=== PATIENT | male | born 1975 ===

== ENCOUNTER 2018-06-21 06:01 | Day surgery (SDC) | payer OTHER ==
[2018-06-16 09:16] VITALS: BMI 27.3
[2018-06-21] MEDS ORDERED: ceFAZolin 1 gm in NS 2 GM/200 ML BAG IVPB ONE (07:29)
[2018-06-21] MEDS ORDERED: Lidocaine/Epinephrine 1% 1:100000 10 ML IJ ONE (07:29)
[2018-06-21] MEDS ORDERED: Midazolam 2 MG/2 ML VIAL ONE (07:30)
[2018-06-21] MEDS ORDERED: Propofol 10 mg/ml Inj (20 ML) ONE (07:30)
[2018-06-21] MEDS ORDERED: Rocuronium 10 mg/ml (5 ml) ONE (07:50)
[2018-06-21] MEDS: Bupivacaine 0.25% 20 ML INJ IJ ONE ×3 (08:48→10:50)
--- NOTE | 2018-06-21 11:10 | PCM.SURG1 ---
Surgeon's Initial Post Op Note - Surgeon's Notes Surgeon: Nakia Guest Services Attendant: PGY4, Sandeep OLIVAS Type of Anesthesia: General Endo, Block Regional, Local Pre-Operative Diagnosis: Right inguinal hernia Operative Findings: Bilateral inguinal hernias, R > L Post-Operative Diagnosis: Bilateral inguinal hernias Operation Performed: Robotic assisted bilateral inguinal hernia repair with mesh Specimen/Specimens Removed: R inguinal lipoma Estimated Blood Loss: EBL {In ML}: 10 Blood Products Given: N/A Drains Used: No Drains Post-Op Condition: Good Date of Surgery/Procedure: 06/21/18 Time of Surgery/Procedure: 08:15
[2018-06-21] MEDS ORDERED: Lactated Ringer's 1,000 ML IV SCH (11:15)
[2018-06-21 11:41] VITALS: TEMP 97; O2SAT 100
[2018-06-21 12:04] VITALS: PULSE 66; RESP 18
[2018-06-21 14:46] VITALS: BP 137/89
--- NOTE | 2018-06-22 01:54 | OP ---
PROCEDURE DATE: 06/21/2018 PREOPERATIVE DIAGNOSIS: Right inguinal hernia, possible bilateral inguinal hernia. POSTOPERATIVE DIAGNOSES: 1. Right direct-indirect hernia, pantaloon type. 2. Left direct inguinal hernia containing preperitoneal fat. 3. Lipoma of the right spermatic cord. OPERATIVE PROCEDURES: 1. Robotic right inguinal hernia repair with mesh. 2. Robotic left inguinal hernia repair with mesh. 3. Robotic excision of lipoma of the spermatic cord. 4. Laparoscopic bilateral transverse abdominis plane block placement. SURGEON: Panfilo Yee MD ASSISTANTS: DEISY Lubin and Akshat Love DO, PGY-4 resident. TYPE OF ANESTHESIA: General endotracheal tube anesthesia. ESTIMATED BLOOD LOSS: Around 10 mL. DRAINS: None. PATHOLOGY: The lipoma of the right spermatic cord was sent for the pathology. COMPLICATIONS: None. INTRAOPERATIVE FINDINGS: The patient had a pantaloon-type hernia on the right side, direct-indirect component, and the patient also had a left direct inguinal hernia. DESCRIPTION OF PROCEDURE: On intraoperative steps, this is a 43-year-old male who was diagnosed with right inguinal hernia, and the patient was consented for the robotic right inguinal hernia repair with mesh with possible bilateral inguinal hernia. The patient was brought to the OR, placed supine on the operating table. After induction of anesthesia, the abdomen was prepped and draped in the usual sterile fashion. Supraumbilical transverse incision was made using the open technique. The robotic camera port was placed. Pneumo was created. Another three 8-mm port was placed in the upper abdomen. The robot was brought in. Camera arm as well as arm 1 and arm 2 were docked, and the patient was placed in the steep Trend position before docking the robot. The peritoneum was excoriated from the right ASIS up to the left ASIS. Before that, the exploration of the pelvis was done and the patient was found to have right inguinal hernia as well as the left direct inguinal hernia, and the peritoneal dissection was carried down in the midline at the space of Retzius. Laterally, the peritoneum was from the lateral abdominal wall on the right side and the vas deferens and spermatic cord vessels. The hernial sac and content was reduced back into the peritoneal cavity. There was a large lipoma of the cord that was also reduced back and it was excised. The patient also had another direct hernial content that was also reduced back into the peritoneal cavity. Now the similar dissection was done on the left side and the peritoneum was from the lateral abdominal wall. The vas deferens and spermatic cord vessels were , and the direct hernial sac was reduced back into the peritoneal cavity. The lipoma of the direct sac on the left side was also reduced back into the peritoneal cavity. Inferior dissection was done on both sides up to the pelvic brim and now the left and right anatomical mesh was placed. After proper implantation of the mesh, the peritoneum was sutured in the midline with 0 Vicryl interrupted suture as well as with 3-0 PDS V-Loc continuous suture. After that, all the instruments were taken out, robot was undocked. Now laparoscopically the 30:30 mL of Marcaine was injected bilaterally in the right and left transverse abdominis muscle area. After proper TAP block, all the instruments were taken out. Pneumo was deflated. All the ports were taken out under vision. The umbilical port site was closed in two layers, the fascia with 0 Vicryl interrupted suture, skin with 4-0 Monocryl and dry sterile dressing was applied. The patient tolerated the procedure well. Count of instrument and gauze was correct. There was no apparent complication. The patient was extubated in OR and sent to the postanesthesia care unit in stable condition. Panfilo Yee MD
== END 2018-06-21 14:46 | disposition home or self-care (01) ==
LOC: C.SDS 06:01
PROVIDERS: ATTEND Surgery Surgical Critical Care
DX: K40.20 Bilateral inguinal hernia, without obstruction or gangrene, not specified as recurrent (principal); D17.6 Benign lipomatous neoplasm of spermatic cord
CPT/HCPCS: 49650; 55520; 88304; C1781; J0690; J2001; J2250; J2270; J2704; J3010; J7120